=== PATIENT | male | born 1955 | race Caucasian/White ===

== ENCOUNTER 2019-03-26 10:40 | Inpatient (IN) | payer MEDICARE, OTHER ==
[2019-03-21 14:13] LABS: Basophils # (auto) 0.1 uL; Basophils % (auto) 0.8 % (0.0-2.0); Eosinophils # (auto) 0.2 uL; Eosinophils % (auto) 2.8 % (0.0-7.0); Hematocrit 35.1 % (41.0-53.0); Hemoglobin 11.8 g/dL (13.5-17.5); Lymphocytes # (auto) 1.2 uL; Lymphocytes % (auto) 16.4 % (10.0-50.0); Mean Corpuscular Hemoglobin 33.3 pg (28.0-32.0); Mean Corpuscular Hgb Conc. 33.6 g/dL (32.0-36.0); Monocytes # (auto) 1.3 uL; Monocytes % (auto) 17.4 % (0.0-12.0); Neutrophils # (auto) 4.6 uL; Neutrophils % (auto) 62.6 % (37.0-80.0); Nucleated Red Blood Cells % 0.1 %; Platelet Count (auto) 275 10^3/uL (140-450); Red Blood Cells 3.55 10^6/uL (4.5-5.90); Red Cell Distribution Width 14.5 % (11.8-14.3); White Blood Cell 7.4 10^3/uL (4.4-10.8)
[2019-03-21 14:26] LABS: Potassium 5.5 mmol/L (3.5-5.1)
[2019-03-21 14:29] LABS: BUN/Creatinine Ratio 3.5; Bilirubin, Total 0.4 mg/dL (0.2-1.0); Total Protein 9.5 g/dL (6.4-8.2)
[2019-03-21 14:30] LABS: Urine Bacteria NONE SEEN /hpf (None Seen); Urine Blood Negative /uL (Negative); Urine Mucus FEW (None Seen); Urine Specific Gravity 1.014 (1.001-1.035); Urine WBC <1 /hpf (0 - 3)
[2019-03-21 14:41] LABS: INR 1.01 (0.9-1.15); Partial Thromboplastin Time 30.3 sec (23.64-32.05)
[~2019-03-26] VITALS: Ht 167.6 cm; Wt 73.1 kg
[~2019-03-26 10:40] MED LIST: ALLO100T PO; ATEN50TA PO; BIMA0.01 EACHEYE; BRIM0.1S3 EACHEYE; BRIN1SUS EACHEYE; CHOL500023 PO; CINA30TA2 PO; CYCL5TAB PO; FURO20TA3 PO; GABA100C9 PO; IRBE75TA30 PO; MULTTAB PO; OMEG1CAP59 PO; POM PO; SENN1TAB14 PO; SIL25T PO; TAMS0.4C36 PO; TEMA30CA PO; TIMO0.5S66 EACHEYE; TRAM-300 PO
[2019-03-26] MEDS ORDERED: fentaNYL CITRATE 10 ML ONE (12:19)
[2019-03-26] MEDS ORDERED: MIDAZOLAM HCL 1MG/1ML-2 ML VIAL ONE (12:19)
[2019-03-26] MEDS ORDERED: HYDROmorphone HCL 2 MG/ML VL ONE (12:19)
[2019-03-26] MEDS ORDERED: ROCURONIUM 10MG/ML 10ML VIAL IV ONE (12:19)
[2019-03-26] MEDS ORDERED: ONDANSETRON HCL 4 MG/2 ML VIAL ONE (12:19)
[2019-03-26] MEDS ORDERED: fentaNYL CITRATE 100 MCG/2 ML VL ONE (12:19)
[2019-03-26] MEDS ORDERED: SODIUM CHLORIDE LOCK 20 ML ONE (12:19)
[2019-03-26] MEDS ORDERED: PROPOFOL 10 MG/ML 20 ML IV ONE (12:19)
[2019-03-26 12:56] LABS: BUN/Creatinine Ratio 3.2; Calcium 9.5 mg/dL (8.5-10.1); Potassium 5.4 mmol/L (3.5-5.1)
--- NOTE | 2019-03-26 13:29 | NUR ---
Midline Placement: Patient educated on need for midline placement. All risks and benefits explained and all questions and concerns addresses prior to procedure. 18g/10cm midline inserted via right basilic vein using Ultrasound. Sterile technique utilized. Blood return obtained from lumen and flushed easily with NS using proper technique. Midline secured with saline lock; biodisc and occlusive dressing applied. Primary RN notified. Midline lot #[id number]
[2019-03-26] MEDS ORDERED: CLINDAMYCIN 600MG IV 50 ML IV ONE (14:27)
[2019-03-26] MEDS ORDERED: SOD CHL 0.45% 1,000 ML IV SCH (15:58)
[2019-03-26] MEDS ORDERED: diphenhdrAMINE HCL 50 MG/1 ML VL IV PRN (16:00)
[2019-03-26] MEDS ORDERED: ACETAMINOPHEN/CODEINE#3 (300/30mg) TAB PO PRN (16:00)
[2019-03-26] MEDS ORDERED: DEXTROSE (50%) 50ML SYRG IV PRN (16:00)
[2019-03-26] MEDS ORDERED: ONDANSETRON HCL 4 MG/2 ML VIAL IV PRN ×2 (16:00→18:15)
[2019-03-26] MEDS ORDERED: SUCCINYLCHOLINE CHLORIDE 20 MG/ML 10ML VIAL IV ONE (16:15)
[2019-03-26] MEDS: InsuLIN REG 1unit/0.01ml Soln (100units/ml) SC SCH (17:00)
[2019-03-26] MEDS: ACCU-CHEK COMFORT CURVE STRIP VI SCH ×2 (17:00→22:00)
[2019-03-26] MEDS ORDERED: LIDOCAINE W/ EPINEPHRINE 1% 20ML VIAL ONE (17:51)
[2019-03-26] MEDS ORDERED: DexAMETHasone SOD PHOS 10MG/1ML VIAL INJ ONE (17:52)
[2019-03-26] MEDS ORDERED: BUPIVACAINE 0.25% INJ 50ML VIAL ONE (17:52)
[2019-03-26] MEDS ORDERED: NEOSTIGMINE 1 MG/ML INJ (10mg/10ML VIAL) ONE (17:53)
[2019-03-26] MEDS ORDERED: GLYCOPYRROLATE 0.2 MG/ML 1ML VIAL ONE (17:53)
[2019-03-26] MEDS ORDERED: MORPHINE SULFATE 4 MG/ML SYR/VIAL IV PRN (18:15)
[2019-03-26] MEDS ORDERED: MIDAZOLAM HCL 1MG/1ML-2 ML VIAL IV PRN (18:15)
[2019-03-26] MEDS ORDERED: ePHEDrine SULFATE 50 MG/ML AMP IV PRN (18:15)
[2019-03-26] MEDS ORDERED: LABETALOL HCL 5 MG/ML 4ML SYRINGE IV PRN (18:15)
[2019-03-26] MEDS ORDERED: KETOROLAC TROMETH 30 MG/ML 1ML VIAL IV ONE (18:45)
[2019-03-26] MEDS ORDERED: NITROGLYCERIN 0.4 MG SL TAB SL PRN (19:00)
[2019-03-26] MEDS ORDERED: MORPHINE SULF INJ 2 MG/ML SYRINGE 1ML IV PRN (19:00)
[2019-03-26] MEDS: HYDROmorphone HCL 2 MG/ML VL IV PRN ×4 (19:07→23:44)
--- NOTE | 2019-03-26 19:40 | NUR ---
Admit to [facility] DAWSON admitted to [facility] via [place] on peoplesoft, and portable 02. Patient transferred to bed, connected to unit monitoring and oxygen, and weighed by bedscale. Patient oriented t primary RN, unit, room, bed, and unit policies regarding patient care and visiting hours. All questions and concerns addressed, patient verbalized understanding. NOTE: RECEIVED PT POST-OP FROM OR. PT UNDERWENT RADICAL RIGHT NEPHRECTOMY. DRESSING INTACT WITH MINIMAL DRAINAGE CIRCLED. WILL MONITOR DRAINAGE. PT COMPLAINING OF PAIN ON RIGHT FLANK. WILL MEDICATE FOR POST-OP PAIN. FULL ASSESSMENT DONE SEE INTERVENTIONS. ALL QUESTIONS AND CONCERNS ADDRESSED AT THIS TIME. VSS. BED LOCKED IN LOWEST POSITION. ALL ALARMS ON AND AUDIBLE.
[2019-03-26 20:07] LABS: Basophils # (auto) 0 uL; Basophils % (auto) 0.4 % (0.0-2.0); Eosinophils # (auto) 0 uL; Eosinophils % (auto) 0.2 % (0.0-7.0); Hemoglobin 9.9 g/dL (13.5-17.5); Lymphocytes # (auto) 0.7 uL; Lymphocytes % (auto) 8.5 % (10.0-50.0); Mean Corpuscular Hemoglobin 33.3 pg (28.0-32.0); Mean Corpuscular Hgb Conc. 33.1 g/dL (32.0-36.0); Mean Corpuscular Volume 100.4 fL (80.0-100.0); Monocytes # (auto) 0.4 uL; Monocytes % (auto) 5.3 % (0.0-12.0); Neutrophils # (auto) 6.8 uL; Neutrophils % (auto) 85.6 % (37.0-80.0); Platelet Count (auto) 209 10^3/uL (140-450); Red Blood Cells 2.99 10^6/uL (4.5-5.90); Red Cell Distribution Width 14.3 % (11.8-14.3)
[2019-03-26 20:21] LABS: BUN/Creatinine Ratio 3.7; Calcium 8.5 mg/dL (8.5-10.1)
[2019-03-26 20:27] VITALS: BP 161/66
--- NOTE | 2019-03-26 21:00 | NUR ---
RECEIVED CRITICAL LAB VALUE OF POTASSIUM 6.7. CALLED DR. JACOBSON FOR ORDERS AND TO REPORT POTASSIUM LEVEL.
[2019-03-26 21:02] LABS: Potassium 6.7 mmol/L (3.5-5.1)
--- NOTE | 2019-03-26 21:10 | NUR ---
DR. SMALL RETURNED CALL AND NEW ORDERS RECEIVED. WILL CARRY OUT THROUGH [facility]. ALSO STATED HE WILL ADD PATIENT TO DIALYSIS SCHEDULE TOMORROW.
[2019-03-26] MEDS ORDERED: DEXTROSE (50%) 50ML SYRG IV ONE (21:15)
[2019-03-26] MEDS ORDERED: InsuLIN REG 1unit/0.01ml Soln (100units/ml) IV ONE (21:15)
[2019-03-26] MEDS ORDERED: ALBUTEROL SULF 2.5 MG/0.5ML(0.5%) NEB SOLN NEB ONE ×2 (21:15→21:45)
[2019-03-26] MEDS ORDERED: SODIUM BICARBONATE 8.4 % INJ 50ML VIAL IV ONE (21:15)
[2019-03-26] MEDS ORDERED: InsuLIN REG 1unit/0.01ml Soln (100units/ml) SC SCH (22:00)
[2019-03-27] VITALS (7 sets, daily range): BP systolic 128–171; BP diastolic 67–83
--- NOTE | 2019-03-27 00:30 | NUR ---
HOSPITALIST PAGED FOR COUGH MEDICINE REQUESTED BY PT. PT HAS IRRITATED THROAT AND IS PAINFUL TO COUGH RELATED TO POST OP PAIN.
[2019-03-27] MEDS: HYDROmorphone HCL 2 MG/ML VL IV PRN ×4 (01:18→16:26)
[2019-03-27 05:42] LABS: Basophils # (auto) 0 uL; Basophils % (auto) 0.2 % (0.0-2.0); Eosinophils # (auto) 0 uL; Hematocrit 31.2 % (41.0-53.0); Hemoglobin 10.4 g/dL (13.5-17.5); Lymphocytes # (auto) 0.6 uL; Lymphocytes % (auto) 4.8 % (10.0-50.0); Mean Corpuscular Hemoglobin 33.4 pg (28.0-32.0); Mean Corpuscular Hgb Conc. 33.2 g/dL (32.0-36.0); Mean Corpuscular Volume 100.7 fL (80.0-100.0); Monocytes # (auto) 1.4 uL; Monocytes % (auto) 12.2 % (0.0-12.0); Neutrophils # (auto) 9.5 uL; Neutrophils % (auto) 82.8 % (37.0-80.0); Platelet Count (auto) 216 10^3/uL (140-450); Red Cell Distribution Width 14.3 % (11.8-14.3); White Blood Cell 11.4 10^3/uL (4.4-10.8)
[2019-03-27 06:07] LABS: Calcium 9.3 mg/dL (8.5-10.1)
[2019-03-27 06:09] LABS: BUN/Creatinine Ratio 4.1
[2019-03-27 06:29] LABS: Potassium 7.3 mmol/L (3.5-5.1)
--- NOTE | 2019-03-27 06:32 | NUR ---
DR. MANCILLA PAGED AGAIN FOR HIGH POTASSIUM LEVEL. WILL AWAIT RETURN CALL
[2019-03-27] MEDS: ACCU-CHEK COMFORT CURVE STRIP VI SCH (07:00)
[2019-03-27] MEDS: InsuLIN REG 1unit/0.01ml Soln (100units/ml) SC SCH (07:00)
--- NOTE | 2019-03-27 08:15 | NUR ---
Opening Shift Note Assumed care of patient, awake and alert. No S/S of distress/SOB. Patient saturation 100% on 2LPM oxygen via nasal cannula. Complains of RT flank pain /10, will given pain medication PRN. RT flank dressing dry and intact with previous markings. See interventions for complete assessment. Bed locked on low position, side rails up x2, bed alarms on at all times, call zamora within reach, instructed on POC and to call for assist PRN, will continue to monitor for changes Q1hr and PRN.
--- NOTE | 2019-03-27 09:15 | NUR ---
Spoke to Smitha from [facility], informed of patient's potassium level of 7.3, verbalized understanding and states "I'll page it to Dr Angel." Also informed Smitha that patient is requesting for Soham to come and do his HD today because Soham is the only one who can cannulate his fistula successfully, Smitha verbalized understanding and states "Soham is in [place] today but I'll go ahead and page the Acute HD RN's."
[2019-03-27] MEDS: guaiFENesin-CODEINE Liq 5 ML UD PO PRN ×3 (10:32→21:20)
--- NOTE | 2019-03-27 11:15 | NUR ---
Dr Savage at bedside, updated on patient's status. Informed of patient's potassium level of 7.3. Patient seen and examined. Will carry out new orders.
--- NOTE | 2019-03-27 11:41 | NUR ---
Paged Dr Angel and called back. Updated on patient's status, informed of patient's potassium level 7.3. Will come and see patient.
[2019-03-27] MEDS ORDERED: HYDROcodone-ACET 5/325MG TAB PO PRN (11:45)
[2019-03-27] MEDS ORDERED: CALCIUM GLUC 4.65meq/50ml D5AE 50 ML IV ONE (12:30)
--- NOTE | 2019-03-27 13:00 | NUR ---
Came back from lunch and per reliever curator of education Helen, Dr Angel came and saw patient. Will carry out new orders.
--- NOTE | 2019-03-27 16:05 | NUR ---
Started HD at bedside with Quique PALACIO
--- NOTE | 2019-03-27 16:48 | NUR ---
Dr Hansen at bedside, updated on patient's status. Patient seen and examined. No new orders at this time.
--- NOTE | 2019-03-27 18:41 | NUR ---
RT flank dressing changed.
--- NOTE | 2019-03-27 19:25 | NUR ---
Opening Shift Note Received report of full code nancy patient. A&0x4, RN at bedside completing dialysis. Vss. Spo2 95-100% on 2L NC. Complains of Right Flank Pain waiting until after dialysis and dinner for pain medications. Rt flank Dressing dry and intact. See interventions for assessment for more information. Bed locked and in lowest position. All Fall and safety precautions in place. at bedside, updated on POC and updated on patient status w/ patient.
[2019-03-27] MEDS ORDERED: EPOETIN ALFA 10,000 UNIT/1 ML VIAL IV ONE (21:00)
[2019-03-27] MEDS: TIMOLOL MAL 0.5% OPTH(EYE) SOL 5ML EACHEYE SCH (22:37)
[2019-03-28] VITALS (7 sets, daily range): BP systolic 142–166; BP diastolic 61–81
[2019-03-28] MEDS: HYDROmorphone HCL 2 MG/ML VL IV PRN ×3 (01:11→14:13)
[2019-03-28 06:54] LABS: Hematocrit 28.1 % (41.0-53.0); Hemoglobin 9.5 g/dL (13.5-17.5); Mean Corpuscular Hemoglobin 33.6 pg (28.0-32.0); Mean Corpuscular Volume 98.8 fL (80.0-100.0); Platelet Count (auto) 173 10^3/uL (140-450); Red Blood Cells 2.84 10^6/uL (4.5-5.90); Red Cell Distribution Width 14.1 % (11.8-14.3); White Blood Cell 7.6 10^3/uL (4.4-10.8)
[2019-03-28 06:55] LABS: Basophils % (manual) 0 (0.0-2.0); Blast Cells 0; Eosinophils % (manual) 0 (0-7); Metamyelocytes % 0; Myelocytes % 0; Promyelocytes % 0; Reactive Lymphocytes 0
[2019-03-28 07:17] LABS: BUN/Creatinine Ratio 4.6; Potassium 4.7 mmol/L (3.5-5.1)
--- NOTE | 2019-03-28 08:00 | NUR ---
Opening Shift Note Assumed care of patient, awake and alert. Patient A&Ox4. Patient on the monitor. Patient on 2L NC saturation at 94%. IV right upper arm midline saline locked, patent, clean, dry, and intact. Incision dressing right flank clean, dry, and intact. No S/S of distress/SOB or pain. Instructed on POC and to call for assist. Bed locked and in the lowest position, side rails up x2, call light with in reach. Will continue to monitor for changes.
[2019-03-28 08:14] LABS: Band Neutrophils % (manual) 3; Lymphocytes % (manual) 12 (10.0-50.0); Monocytes % (manual) 15 (0-12)
--- NOTE | 2019-03-28 08:30 | NUR ---
Patient sitting up in bed eating breakfast independently. Will continue to monitor.
--- NOTE | 2019-03-28 10:00 | NUR ---
Medication dosages, usages, and side effects explained to patient. Patient verbalized understanding. Will continue to monitor.
[2019-03-28] MEDS: ALLOPURINOL 100 MG TAB PO SCH (10:26)
[2019-03-28] MEDS: TIMOLOL MAL 0.5% OPTH(EYE) SOL 5ML EACHEYE SCH ×2 (10:27→22:03)
[2019-03-28] MEDS ORDERED: ATENOLOL 50 MG TAB PO ONE (12:00)
--- NOTE | 2019-03-28 12:30 | NUR ---
Patient sitting up in bed eating lunch independently. Will continue to monitor.
[2019-03-28] MEDS: guaiFENesin-CODEINE Liq 5 ML UD PO PRN ×2 (14:14→17:55)
--- NOTE | 2019-03-28 16:30 | NUR ---
Patient up walking around the nurses station independently. Patient has steady gate. Patient tolerated. Patient back in bed now and resting. Will continue to monitor.
[2019-03-28] MEDS ORDERED: TAMSULOSIN HYDROCHLORIDE 0.4 MG CAP PO SCH (18:00)
--- NOTE | 2019-03-28 18:30 | NUR ---
End of shift note: Patient sitting up in bed eating dinner independently. Patient A&Ox4. Patient on the monitor. Patient on 2L NC saturation at 98%. IV right upper arm midline saline locked, patent, clean, dry, and intact. Incision dressing right flank clean, dry, and intact. No S/S of distress/SOB or pain. Bed locked and in the lowest position, side rails up x2, call light with in reach. Report to be given to rn night RN.Will continue to monitor for changes.
--- NOTE | 2019-03-28 20:00 | NUR ---
Report given to Valentina PALACIO. Patient going to room 296A.
[2019-03-28] MEDS ORDERED: TEMAZEPAM 15 MG CAP PO SCH (22:00)
[2019-03-28] MEDS ORDERED: SENNA 8.6 MG TAB PO SCH (22:00)
[2019-03-29] MEDS: guaiFENesin-CODEINE Liq 5 ML UD PO PRN (01:37)
[2019-03-29] MEDS ORDERED: SIMETHICONE 80 MG CHEWABLE TABLET PO PRN (03:00)
[2019-03-29 05:25] VITALS: BP 151/76
[2019-03-29 06:58] LABS: BUN/Creatinine Ratio 5.8; Calcium 9.6 mg/dL (8.5-10.1); Potassium 4.9 mmol/L (3.5-5.1)
--- NOTE | 2019-03-29 07:01 | NUR ---
Received call from Javed in laboratory re critical creatinine of 11.10, paged hospitalist.
--- NOTE | 2019-03-29 07:20 | NUR ---
No call from the hospitalist. Endorsed care to Blayne PALACIO.
--- NOTE | 2019-03-29 07:30 | NUR ---
OPENING SHIFT NOTE PATIENT RESTING IN BED. RESPIRATIONS EVEN AND UNLABORED. NO S/S OF DISTRESS NOTED A THIS TIME. PATIENT COMPLAINING OF ABD PAIN. WILL MEDICATED ORDERED. ABDOMEN FIRM WITH BOWEL SOUNDS PRESENT. PATIENT REPORTS PASSING GAS. PATIENT UPDATED ON POC. ALL QUESTIONS ANSWERED. BED IN LOWEST LOCKED POSITION WITH CALL LIGHT WITHIN REACH. WILL CONTINUE CARE.
--- NOTE | 2019-03-29 08:00 | NUR ---
KENNEDI RAMÍREZ REGARDING NIGHT CRITICAL CREATNINE OF 11.1. INFORMED PATIENT IS A DIALYSIS PATIENT. NO NEW ORDERS RECEIVED.
[2019-03-29] MEDS: HYDROmorphone HCL 2 MG/ML VL IV PRN ×2 (08:39→14:16)
[2019-03-29 09:00] VITALS: BP 161/79
[2019-03-29] MEDS: ALLOPURINOL 100 MG TAB PO SCH (09:59)
[2019-03-29] MEDS ORDERED: LOSARTAN POTASSIUM 25 MG TAB PO SCH (10:00)
[2019-03-29] MEDS ORDERED: ATENOLOL 50 MG TAB PO SCH (10:00)
[2019-03-29] MEDS ORDERED: GABAPENTIN 100 MG CAP PO SCH (10:00)
--- NOTE | 2019-03-29 10:11 | NUR ---
SPOKE TO Mika EDGAR. OK TO D/C HOME. WILL DO DIALYSIS OUTPATIENT.
--- NOTE | 2019-03-29 10:29 | NUR ---
INFORMED Mika LAURA OF PATIENT STATUS INCLUDING NO BOWEL MOVEMENT SINCE 03/26/19. RECEIVED ORDER FOR LACTULOSE ONE TIME.
[2019-03-29] MEDS: TIMOLOL MAL 0.5% OPTH(EYE) SOL 5ML EACHEYE SCH (10:38)
[2019-03-29] MEDS ORDERED: LACTULOSE 20Gm/30ML SOLN PO ONE (11:00)
--- NOTE | 2019-03-29 11:46 | NUR ---
PT Patient stated he does not need PT - He ambulate independently, D/C to nursing. Addendum: 03/29/19 at 1147 by LISA ROBLEDO PTT Amended: Links added.
[2019-03-29 13:00] VITALS: BP 156/76
--- NOTE | 2019-03-29 16:15 | NUR ---
Discharge instructions given as ordered. Encourage to follow up with PMD as instructed. Informed patient to keep follow up appointments and to please attend dialysis as scheduled by Wilfred gutierrez. All questions and concerns addressed. Patient verbalized understanding. IV removed with catheter intact, pressure dressing applied. Telemetry unit returned to ICU. Patient taken to vehicle via wheelchair with all personal belongings, accompanied by staff and family member. No distress noted at time of departure.
== END 2019-03-29 16:15 | disposition home or self-care (01) | DRG 656 ==
LOC: SUR 10:40 → ICU CENTRL 20:49 → DOU IN ICU 23:06 → TELE-WESTW 03-28 20:53
PROVIDERS: ADMIT Urology; ATTEND Internal Medicine
PROC: 07BD0ZZ Excision of Aortic Lymphatic, Open Approach (ICD-10-PCS; 2019-03-26)
PROC: 0WQF0ZZ Repair Abdominal Wall, Open Approach (ICD-10-PCS; 2019-03-26)
PROC: 0TT00ZZ Resection of Right Kidney, Open Approach (ICD-10-PCS; principal; 2019-03-26 16:15)
PROC: 5A1D70Z Performance of Urinary Filtration, Intermittent, Less than 6 Hours Per Day (ICD-10-PCS; 2019-03-27)
DX: D41.01 Neoplasm of uncertain behavior of right kidney (principal); N18.6 End stage renal disease; I12.0 Hypertensive chronic kidney disease with stage 5 chronic kidney disease or end stage renal disease; Z99.2 Dependence on renal dialysis; H40.9 Unspecified glaucoma; E87.5 Hyperkalemia; Z60.2 Problems related to living alone; K59.00 Constipation, unspecified; D64.9 Anemia, unspecified; E78.5 Hyperlipidemia, unspecified; M10.9 Gout, unspecified; Z90.5 Acquired absence of kidney; Z88.0 Allergy status to penicillin; Z88.2 Allergy status to sulfonamides; Z88.6 Allergy status to analgesic agent; Z79.899 Other long term (current) drug therapy
CPT/HCPCS: 36415; 71045; 80048; 80053; 81001; 82962; 83735; 85007; 85025; 85027; 85610; 85730; 86850; 86900; 86901; 87081; 87086; 90935; 94644; 97163; G0378; J0330; J0610; J0885; J1100; J1815; J2250; J2405; J2704; J3490